=== PATIENT | male | born 1985 | race Caucasian/White ===

== ENCOUNTER 2018-03-09 08:19 | Observation (INO) ==
[2018-03-09] MEDS ORDERED: Morphine Sulfate Inj 8 MG/ML Vial IV.PUSH ONE (09:20)
[2018-03-09] MEDS ORDERED: Ketorolac Inj 30 MG/ML (IVP) Vial IV.PUSH ONE (09:23)
--- NOTE | 2018-03-09 09:43 | ED ---
HPI General Chief complaint: Extremity Injury, Upper Stated complaint: L Shoulder Pain x Last night Time Seen by Provider: 03/09/18 09:09 Source: patient Mode of arrival: ambulatory Limitations: no limitations History of Present Illness HPI narrative: 32-year-old male the presents to the ED for evaluation of left- sided clavicle/shoulder pain. Per patient he developed this pain since last night. He denies any injury. He does tell me that he believes that he may have an infection. Per patient she does use Dilaudid. He cannot really tell me how long his last time he used. He does state that his pain is 10 out of 10. Does feel short of breath with the pain. Denies any fevers chills or sweats. No history of this in the past. No urinary or bowel movement issues. Abdominal pain. It is hard to get a history from him as he does appear to be in a lot of discomfort. She denies any history of heart disease. Patient points to the area of the clavicle on the shoulder as the area of most pain but does point to his left pectoral muscle is area of pain. Related Data Home Medications Medication Instructions Recorded Confirmed No Known Home Medications 03/09/18 03/09/18 Allergies Allergy/AdvReac Type Severity Reaction Status Date / Time No Known Allergies Allergy none Uncoded 03/09/18 08:21 Review of Systems ROS Unobtainable All other systems reviewed negative except as stated in HPI [facility] Medical History Medical History Patient denies medical problems (Acute) Surgical History Surgical History No history of previous surgery (Acute) Social History Social History Substance History: No History of Abuse Smoking Status: Current every day smoker Tobacco Type: Cigarettes How Often Do You Have a Drink Containing Alcohol: 4 or more times a week Recent Travel [facility] within the Last 8 Weeks: No Recent Out of Country Travel within the Last 8 Weeks: No Immunization History Tetanus Immunization: Unsure Hx Influenza Vaccine This Season: No Exam Narrative Exam Narrative: GENERAL: Well-appearing but in some distress SKIN: Focused skin assessment warm/dry. HEAD: Atraumatic. Normocephalic. EYES: Pupils equal and round. No scleral icterus. No injection or drainage. ENT: No nasal bleeding or discharge. Mucous membranes pink and moist. Tongue is midline. No uvula deviation. NECK: Trachea midline. No JVD. CARDIOVASCULAR: Regular rate and rhythm. No murmur appreciated. RESPIRATORY: No accessory muscle use. Clear to auscultation. Breath sounds equal bilaterally. GASTROINTESTINAL: Abdomen soft, non-tender, nondistended. Hepatic and splenic margins not palpable. MUSCULOSKELETAL: No obvious deformities. No clubbing. No cyanosis. No edema. Full range of motion of the upper and lower extremities bilaterally. Patient has pain with any movement of the left shoulder and keeps his arm close to his chest. Patient points to the clavicles are most pain however. Very tender to touch in this area. No cervical, thoracic, lumbar spine tenderness to palpation. No obvious deformities noted. 2+ pulses bilaterally. Sensation intact bilaterally. NEUROLOGICAL: Awake and alert. No obvious cranial nerve deficits. Motor grossly within normal limits. Normal speech. PSYCHIATRIC: Appropriate mood and affect; insight and judgment normal. Course Initial Documented Vital Signs Temperature 97.5 F L 03/09/18 08:22 Pulse Rate 75 03/09/18 08:22 Respiratory Rate 16 03/09/18 08:22 Blood Pressure 118/79 03/09/18 08:22 Pulse Oximetry 99 03/09/18 08:22 Last Documented Vital Signs Temperature 97.5 F L 03/09/18 08:22 Pulse Rate 77 03/09/18 10:00 Respiratory Rate 16 03/09/18 10:00 Blood Pressure 156/88 H 03/09/18 10:00 Pulse Oximetry 100 03/09/18 10:00 Medical Decision Making [facility] Narrative Medical decision making narrative: 32-year-old male that presents to the ED for evaluation of left-sided shoulder pain. Patient was properly examined and was found to have signs and symptoms concerning for possible infection secondary to IV drug abuse. Labs and imaging were ordered. Patient was given IV pain medications and antiemetics. Patient is hard to assess and cannot really assess any murmur or not. She does not appear to have pain and she is chance that he points more to his clavicle. Case was discussed with my attending who agrees with plan. CT scan will be ordered. Labs and imaging showed elevated CRp otherwise unremarcable. patient still in some pain. Pain meds given with some relief but still in a lot of discomfort. Concern for endocarditis due to IVDA. Recommendation by my attending Dr Toledo is for admission and antibitioics. Case discussed with Dr Torres who agrees with admission. My attending discussed case with patient who is in agreement with plan. Differential Diagnosis Differential Diagnosis: Cellulitis versus sepsis versus endocarditis versus septic emboli versus acute on chronic pain versus muscle pain versus fracture versus osteomyelitis Medical Records Medical records reviewed: Yes I reviewed the patient's medical records. Lab Data Lab results reviewed: Yes I reviewed the patient's lab results. Lab results narrative: troponin and CKMB negative CRP of 6 Result diagrams: 03/09/18 09:35 03/09/18 09:35 Lab Results 03/09/18 03/09/18 03/09/18 Range/Units 09:35 09:35 09:35 CBC w Diff Auto diff final WBC 9.4 (4.0-11.0) th/mm3 RBC 5.02 (4.50-5.90) mil/mm3 Hgb 15.1 (13.0-17.0) gm/dL Hct 44.2 (39.0-51.0) % MCV 88.1 (80.0-100.0) fL MCH 30.1 (27.0-34.0) pg MCHC 34.2 (32.0-36.0) % RDW 15.5 (11.6-17.2) % Plt Count 256 (150-450) th/mm3 MPV 8.0 (7.0-11.0) fL Neut % (Auto) 73.0 H (16.0-70.0) % Lymph % (Auto) 12.9 (9.0-44.0) % [place] % (Auto) 9.5 H (0.0-8.0) % Eos % (Auto) 1.1 (0.0-4.0) % Baso % (Auto) 3.5 H (0.0-2.0) % Neut # (Auto) 6.9 (1.8-7.7) th/mm3 Lymph # (Auto) 1.2 (1.0-4.8) th/mm3 [place] # (Auto) 0.9 (0.0-0.9) th/mm3 Eos # (Auto) 0.1 (0.0-0.4) th/mm3 Baso # (Auto) 0.3 H (0.0-0.2) th/mm3 WBC Differential . Differential Comment . Sodium 138 (136-145) meq/L Potassium 4.1 (3.5-5.1) meq/L Chloride 105 (98-107) meq/L Carbon Dioxide 25.5 (21.0-32.0) meq/L Anion Gap 8 (5-15) meq/L BUN 14 (7-18) mg/dL Creatinine 0.99 (0.60-1.30) mg/dL Estimated GFR 88 L (>89) mL/min Random Glucose 103 (74-106) mg/dL Lactic Acid (0.4-2.0) mmol/L Calcium 9.0 (8.5-10.1) mg/dL Magnesium 2.1 (1.5-2.5) mg/dL Total Bilirubin 1.3 H (0.2-1.0) mg/dL AST 26 (15-37) U/L ALT 34 (12-78) U/L Alkaline Phosphatase 105 (45-117) U/L Total Creatine Kinase 163 (39-308) U/L CK-MB (CK-2) 1.0 (0.5-3.6) ng/mL Troponin I Less than 0.02 L (0.02-0.05) ng/mL C-Reactive Protein 6.22 H (0.00-0.30) mg/dL Total Protein 8.3 H (6.4-8.2) g/dL Albumin 4.2 (3.4-5.0) g/dL 03/09/18 Range/Units 09:35 CBC w Diff WBC (4.0-11.0) th/mm3 RBC (4.50-5.90) mil/mm3 Hgb (13.0-17.0) gm/dL Hct (39.0-51.0) % MCV (80.0-100.0) fL MCH (27.0-34.0) pg MCHC (32.0-36.0) % RDW (11.6-17.2) % Plt Count (150-450) th/mm3 MPV (7.0-11.0) fL Neut % (Auto) (16.0-70.0) % Lymph % (Auto) (9.0-44.0) % [place] % (Auto) (0.0-8.0) % Eos % (Auto) (0.0-4.0) % Baso % (Auto) (0.0-2.0) % Neut # (Auto) (1.8-7.7) th/mm3 Lymph # (Auto) (1.0-4.8) th/mm3 [place] # (Auto) (0.0-0.9) th/mm3 Eos # (Auto) (0.0-0.4) th/mm3 Baso # (Auto) (0.0-0.2) th/mm3 WBC Differential Differential Comment Sodium (136-145) meq/L Potassium (3.5-5.1) meq/L Chloride (98-107) meq/L Carbon Dioxide (21.0-32.0) meq/L Anion Gap (5-15) meq/L BUN (7-18) mg/dL Creatinine (0.60-1.30) mg/dL Estimated GFR (>89) mL/min Random Glucose (74-106) mg/dL Lactic Acid 1.7 (0.4-2.0) mmol/L Calcium (8.5-10.1) mg/dL Magnesium (1.5-2.5) mg/dL Total Bilirubin (0.2-1.0) mg/dL AST (15-37) U/L ALT (12-78) U/L Alkaline Phosphatase (45-117) U/L Total Creatine Kinase (39-308) U/L CK-MB (CK-2) (0.5-3.6) ng/mL Troponin I (0.02-0.05) ng/mL C-Reactive Protein (0.00-0.30) mg/dL Total Protein (6.4-8.2) g/dL Albumin (3.4-5.0) g/dL Imaging Data Attestation: I personally reviewed and interpreted this imaging study as follows : Radiologist's impression: Chest CT 03/09/18 09:20 CONCLUSION: 1. Unremarkable exam. 2. The left clavicle is unremarkable in appearance. Chest X-Ray 03/09/18 09:21 CONCLUSION: No acute cardiopulmonary disease. ECG Data EKG Prior to Arrival: No Attestation: I personally reviewed and interpreted this ECG as follows: Interpretation: EKG shows sinus rhythm with no sign of acute ischemia or arrhythmia read by me and attending. Discharge Plan Discharge Disposition Patient Disposition: 30 Still Patient Discharge Details Diagnosis: Chest pain, Endocarditis, Polysubstance abuse Physicians Team ED Provider: Khang Gutiérrez ED Midlevel Provider: Tirso Rogers Primary Care Provider: Primary Care Rosalba Mariee Attending Provider: Mal Torres Discharge Interventions Interventions: Vital Signs Last Done: 03/09/18 10:00 Status ED Status: Admitted Patient
--- NOTE | 2018-03-09 09:46 | XR ---
EXAM DATE: 03/09/2018 9:43 AM EDT AGE/SEX: 32 years / Male INDICATIONS: Left shoulder area pain, no known injury CLINICAL DATA: This is the patient's initial encounter. Patient reports that signs and symptoms have been present for 1 day and indicates a pain score of 10/10. MEDICAL/SURGICAL HISTORY: . Gout None. COMPARISON: No prior exams available for comparison. FINDINGS: A single AP view of the chest demonstrates the lungs to be symmetrically aerated without evidence of mass, infiltrate or effusion. The cardiomediastinal contours are unremarkable. Osseous structures a re intact. There are overlying electrocardiogram leads. Left shoulder appears unremarkable. CONCLUSION: No acute cardiopulmonary disease. Electronically signed by: Marco Alvarado MD 03/09/2018 9:45 AM EDT
[2018-03-09 09:54] LABS: Baso # (Auto) 0.3 th/mm3 (0.0-0.2); Baso % (Auto) 3.5 % (0.0-2.0); Eos # (Auto) 0.1 th/mm3 (0.0-0.4); Eos % (Auto) 1.1 % (0.0-4.0); Hematocrit 44.2 % (39.0-51.0); Hemoglobin 15.1 gm/dL (13.0-17.0); Lymph # (Auto) 1.2 th/mm3 (1.0-4.8); Lymph % (Auto) 12.9 % (9.0-44.0); Mean Corpuscular HGB Conc 34.2 % (32.0-36.0); Mean Corpuscular Hemoglobin 30.1 pg (27.0-34.0); Mean Corpuscular Volume 88.1 fL (80.0-100.0); Mono # (Auto) 0.9 th/mm3 (0.0-0.9); Mono % (Auto) 9.5 % (0.0-8.0); Neut # (Auto) 6.9 th/mm3 (1.8-7.7); Platelet Count 256 th/mm3 (150-450); Red Blood Count 5.02 mil/mm3 (4.50-5.90); Red Cell Distribution Width 15.5 % (11.6-17.2); White Blood Count 9.4 th/mm3 (4.0-11.0)
[2018-03-09 10:01] VITALS: O2SAT 100
[2018-03-09 10:07] LABS: Magnesium 2.1 mg/dL (1.5-2.5)
[2018-03-09] MEDS ORDERED: HYDROmorphone PF Inj 1 MG/ML Ampul IV.PUSH ONE (10:08)
[2018-03-09] MEDS ORDERED: Sod Chloride 0.9% Inj 1,000 ML IV.SIG ONE (10:09)
[2018-03-09 10:14] LABS: Creatine Kinase 163 U/L (39-308)
[2018-03-09] MEDS ORDERED: HYDROmorphone PF Inj 2 MG/ML Vial IV.PUSH ONE ×2 (10:15→14:15)
[2018-03-09 10:19] LABS: C-Reactive Protein 6.22 mg/dL (0.00-0.30)
[2018-03-09] MEDS ORDERED: Piperacil/Tazo 4.5 GM Premix 4.5 GM/100 ML BAG IV.SIG ONE (10:42)
[2018-03-09] MEDS ORDERED: Vancomycin Inj 1 GM/200 ML PIGGYBACK IV.SIG SCH (11:00)
[2018-03-09 11:02] LABS: Chloride 105 meq/L (98-107); Potassium 4.1 meq/L (3.5-5.1); Sodium 138 meq/L (136-145)
[2018-03-09 11:06] LABS: Albumin 4.2 g/dL (3.4-5.0); Anion Gap 8 meq/L (5-15); Blood Urea Nitrogen 14 mg/dL (7-18); Carbon Dioxide 25.5 meq/L (21.0-32.0); Glucose,Random 103 mg/dL (74-106)
[2018-03-09 11:09] LABS: Alanine Aminotransferase 34 U/L (12-78); Aspartate Aminotransferase 26 U/L (15-37); Glomerular Filtration Rate 88 mL/min (>89)
[2018-03-09 11:10] LABS: Total Protein 8.3 g/dL (6.4-8.2)
[2018-03-09 11:12] LABS: Alkaline Phosphatase 105 U/L (45-117)
[2018-03-09] MEDS ORDERED: Vancomycin Inj 1,000 MG in Sodium Chlor 0.9% Inj 250 ML IV.SIG ONE (11:12)
--- NOTE | 2018-03-09 11:56 | CT ---
EXAM DATE: 03/09/2018 11:43 AM EDT AGE/SEX: 32 years / Male INDICATIONS: Left anterior chest pain around clavicle area. No known injury. CLINICAL DATA: This is the patient's initial encounter. Patient reports that signs and symptoms have been present for 2 days and indicates a pain score of 8/10. MEDICAL/SURGICAL HISTORY: None. None. RADIATION DOSE: 20.01 CTDI (mGy) COMPARISON: No prior exams available for comparison. TECHNIQUE: Multiple contiguous axial images were obtained through the chest during bolus infusion of 65 ml Omnipaque 350 (iohexol) nonionic water-soluble contrast as a single exam dose. Images were obtained in suspended respiration using multiple row detector helical technique. Using automated exp osure control and adjustment of the mA and/or kV according to patient size, radiation dose was kept a s low as reasonably achievable to obtain optimal diagnostic quality images. DICOM format image data is available electronically for review and comparison. FINDINGS: Lungs: The lungs are symmetrically aerated. No infiltrates or nodular densities are seen. Mediastinum: There is good visualization of the great vessels of the middle mediastinum. No evidenc e of mediastinal or hilar adenopathy/mass. Pleurae: No evidence of focal thickening or pleural effusion. Axillae: Unremarkable. Bony Structures: Unremarkable. Miscellaneous: The examination was extended to include the upper abdomen, and both adrenal glands ar e normal in size and configuration. CONCLUSION: 1. Unremarkable exam. 2. The left clavicle is unremarkable in appearance. Electronically signed by: Marco Alvarado MD 03/09/2018 11:54 AM EDT
[2018-03-09] MEDS: Ketorolac Inj 30 MG/ML (IVP) Vial IV.PUSH PRN ×2 (14:27→20:04)
[2018-03-09] MEDS ORDERED: Acetaminophen 325 MG Tablet PO PRN (14:29)
[2018-03-09] MEDS ORDERED: Bisacodyl 10 MG Supp RECTAL PRN (14:29)
[2018-03-09] MEDS ORDERED: Temazepam 15 MG Capsule PO PRN (14:29)
[2018-03-09] MEDS ORDERED: MethylPREDNISolone Sod Succinate Inj 125 MG/2 ML Vial IV.PUSH ONE (14:30)
[2018-03-09] MEDS ORDERED: Sod Chloride 0.9% Inj 1,000 ML IV.CONT SCH (14:30)
--- NOTE | 2018-03-09 14:34 | P.HP ---
History of Present Illness Primary Care Physician: No Primary Care Physician Chief Complaint: Clavicle shoulder pain History of Present Illness: 32-year-old male with known history of gout, IV drug use with Dilaudid who presented to the hospital because of left clavicle and shoulder pain. Patient states that he was in normal state of health until yesterday when he started developing some achiness in his left clavicle shoulder area. It progressively got worse where he could not sleep throughout the night. He states that he took his temperature last night and was 103. The patient came to the emergency department today and had workup performed which he was afebrile , no leukocytosis, CT scan of the clavicle and shoulder do not indicate any acute abnormality. Laboratory studies were performed which did have an elevated C-reactive protein. Because of the patient's history of IV drug use is recommended by the ER physician the need to evaluate for possible endocarditis. Patient does have history of gout in which he has had multiple flares in multiple joints to include fingers, knees, ankles, toes. He indicates that the pain is much worse than his normal gout flareups. Patient is laying in bed use and multiple curse words, he was resting comfortably until I walked into the room then it would appears he was start to cry and curse about his pain. He is demanding pain medication. Patient states that he actively uses IV drugs to include Dilaudid. He states last time he used was a few days ago. He states that he just recently started using. He indicates his only used IV drugs approximately 3-4 times. - Diagnosis (1) Pain of left clavicle Inpatient Certification: I certify that the inpatient services were ordered in accordance with Medicare regulations governing the order. This includes certification that hospital inpatient services are reasonable and necessary and in the case of services not specified as inpatient-only under 42 CFR 419.22(n), that they are appropriately provided as inpatient services in accordance to with the 2-midnight benchmark under 43 CFR 412.3(e) Review of Systems All other systems reviewed negative except as stated in HPI Constitutional: Reports fever(s) Musculoskeletal: Reports joint pain PMFSH - History History Provided By: Patient - Medical History Medical History: Medical History (Last Updated 03/09/18 @ 14:27 by DARIO Lopez) Gouty arthritis IV drug user - Surgical History Surgical History: Surgical History (Last Reviewed 03/09/18 @ 09:41 by DARIO Conrad) No history of previous surgery (Acute) - Family History Family History: Family History (Last Updated 03/09/18 @ 14:27 by DARIO Lopez) Other No pertinent family history - Tobacco History Tobacco Use In Past 30 Days: Yes Smoking Status: Current every day smoker Tobacco Type: Cigarettes Packs Per Day: 1 Years Smoked: 14 - Alcohol History How Often Do You Have a Drink Containing Alcohol: 4 or more times a week - Substance Use History Substance History: No History of Abuse - Travel History Recent Travel in the [facility] Within the Last 8 Weeks: No Recent Travel Out of the Country Within the Last 8 Weeks: No - Immunization History Tetanus Immunization: Unsure Hx Influenza Vaccine This Season: No Medications and Allergies Active Medications: Active Medications Ketorolac Tromethamine (Toradol Inj) 30 mg IV.PUSH Q6H PRN PRN Reason: PAIN SCALE 6 TO 10 Stop: 03/14/18 13:55 Methylprednisolone Sodium Succinate (Solumedrol Inj) 125 mg IV.PUSH ONCE ONE Stop: 03/09/18 14:31 Morphine Sulfate (Oramorph Sr) 100 mg PO Q8HR EDE Allergies Allergy/AdvReac Type Severity Reaction Status Date / Time No Known Allergies Allergy none Uncoded 03/09/18 08:21 Home Medications Medication Instructions Recorded Confirmed Type No Known Home Medications 03/09/18 03/09/18 History Exam Vital signs: Vital Signs 03/09/18 08:22 03/09/18 09:21 03/09/18 10:00 Temperature 97.5 F L Pulse Rate 75 77 Respiratory Rate 16 16 Blood Pressure 118/79 156/88 H Pulse Oximetry 99 99 100 03/09/18 13:47 Temperature Pulse Rate 82 Respiratory Rate Blood Pressure Pulse Oximetry Intake & Output 03/08/18 03/09/18 03/09/18 18:59 06:59 18:59 Intake Total 350 / 350 Balance 350 / 350 Weight 85.5 kg Intake: IV 350 / 350 Zosyn 4.5 GM Premix 4.5 gm In 100 / 100 100 ml @ 200 mls/hr IV.SIG ONCE ONE Rx#:[id number] Vancomycin Inj 1,000 MG In NS 250 / 250 Inj 250 ML @ 250 mls/hr IV.SIG ONCE ONE Rx#:[id number] Narrative: GENERAL: Well-developed, well-nourished, in no acute distress. alert and orientated HEENT: Head is normocephalic without any lesions or masses noted. Facial features are symmetric. Eyes: Pupils equal round reactive to light. Extraocular muscles are intact. Conjunctivae were clear. Oropharyngeal: Pharynx without any erythema edema. Tongue is midline without deviation. Buccal mucosa is moist without any masses or lesions NECK: Supple without any masses. Trachea midline no deviation. No JVD, no bruits are appreciated CARDIAC: Regular rhythm, regular rate. S1/S2 are heard. No murmurs gallops or rubs. LUNGS: Clear to auscultation bilaterally. No wheeze, rhonchi or rales. No use of accessory muscles on inspiration or expiration. ABDOMEN: Soft, nontender. Nondistended. Bowel sounds heard in all 4 quadrants. No organomegaly or masses. Negative rebound, negative guarding EXTREMITIES: No edema, pulses are equal bilaterally. No cyanosis or clubbing NEUROLOGY: Mood and affect appear appropriate. Cranial nerves II through XII grossly intact. Muscle strength 5/5 in upper and lower extremities bilaterally. Deep tendon reflexes are 2+ in upper and lower extremities bilaterally. Results - Labs CBC & Chem 7: 03/09/18 09:35 03/09/18 09:35 Labs: Laboratory Results - last 24 hr 03/09/18 03/09/18 03/09/18 09:35 09:35 09:35 CBC w Diff Auto diff final WBC 9.4 RBC 5.02 Hgb 15.1 Hct 44.2 MCV 88.1 MCH 30.1 MCHC 34.2 RDW 15.5 Plt Count 256 MPV 8.0 Neut % (Auto) 73.0 H Lymph % (Auto) 12.9 [place] % (Auto) 9.5 H Eos % (Auto) 1.1 Baso % (Auto) 3.5 H Neut # (Auto) 6.9 Lymph # (Auto) 1.2 [place] # (Auto) 0.9 Eos # (Auto) 0.1 Baso # (Auto) 0.3 H WBC Differential . Differential Comment . Sodium 138 Potassium 4.1 Chloride 105 Carbon Dioxide 25.5 Anion Gap 8 BUN 14 Creatinine 0.99 Estimated GFR 88 L Random Glucose 103 Lactic Acid Calcium 9.0 Magnesium 2.1 Total Bilirubin 1.3 H AST 26 ALT 34 Alkaline Phosphatase 105 Total Creatine Kinase 163 CK-MB (CK-2) 1.0 Troponin I Less than 0.02 L C-Reactive Protein 6.22 H Total Protein 8.3 H Albumin 4.2 03/09/18 09:35 CBC w Diff WBC RBC Hgb Hct MCV MCH MCHC RDW Plt Count MPV Neut % (Auto) Lymph % (Auto) [place] % (Auto) Eos % (Auto) Baso % (Auto) Neut # (Auto) Lymph # (Auto) [place] # (Auto) Eos # (Auto) Baso # (Auto) WBC Differential Differential Comment Sodium Potassium Chloride Carbon Dioxide Anion Gap BUN Creatinine Estimated GFR Random Glucose Lactic Acid 1.7 Calcium Magnesium Total Bilirubin AST ALT Alkaline Phosphatase Total Creatine Kinase CK-MB (CK-2) Troponin I C-Reactive Protein Total Protein Albumin - Imaging Impressions Chest CT 03/09/18 09:20 CONCLUSION: 1. Unremarkable exam. 2. The left clavicle is unremarkable in appearance. Chest X-Ray 03/09/18 09:21 CONCLUSION: No acute cardiopulmonary disease. Caprini VTE Risk Assessment Caprini VTE Risk Assessment: No/Low Risk (score <= 1) Caprini Risk Assessment Model: Point Value = 1 Point Value = 2 Point Value = 3 Point Value = 5 Age 41-60 Minor surgery BMI > 25 kg/m2 Swollen legs Varicose veins or History of unexplained or recurrent spontaneous Oral contraceptives or hormone replacement Sepsis (< 1 month) Serious lung disease, including pneumonia (< 1 month) Abnormal pulmonary function Acute myocardial infarction Congestive heart failure (< 1 month) History of inflammatory bowel disease Medical patient at bed rest Age 61-74 Arthroscopic surgery Major open surgery (> 45 min) Laparoscopic surgery (> 45 min) Malignancy Confined to bed (> 72 hours) Immobilizing plaster cast Central venous access Age >= 75 History of VTE Family history of VTE Factor V Leiden Prothrombin [id number] Lupus anticoagulant Anticardiolipin antibodies Elevated serum homocysteine Heparin-induced thrombocytopenia Other congenital or acquired thrombophilia Stroke (< 1 month) Elective arthroplasty Hip, pelvis, or leg fracture Acute spinal cord injury (< 1 month) Prophylaxis Regimen: Total Risk Factor Score Risk Level Prophylaxis Regimen 0-1 Low Early ambulation 2 Moderate Order ONE of the following: *Sequential Compression Device (SCD) *Heparin 5000 units SQ BID 3-4 Higher Order ONE of the following medications: *Heparin 5000 units SQ TID *Enoxaparin/Lovenox 40 mg SQ daily (WT < 150 kg, CrCl > 30 mL/min) *Enoxaparin/Lovenox 30 mg SQ daily (WT < 150 kg, CrCl > 10-29 mL/min) *Enoxaparin/Lovenox 30 mg SQ BID (WT < 150 kg, CrCl > 30 mL/min) AND/OR *Sequential Compression Device (SCD) 5 or more Highest Order ONE of the following medications: *Heparin 5000 units SQ TID (Preferred with Epidurals) *Enoxaparin/Lovenox 40 mg SQ daily (WT < 150 kg, CrCl > 30 mL/min) *Enoxaparin/Lovenox 30 mg SQ daily (WT < 150 kg, CrCl > 10-29 mL/min) *Enoxaparin/Lovenox 30 mg SQ BID (WT < 150 kg, CrCl > 30 mL/min) AND *Sequential Compression Device (SCD) Assessment and Plan - Assessment (1) Pain of left clavicle Code(s): M89.8X1 - Other specified disorders of bone, shoulder Status: Acute - Plan Left clavicle/shoulder pain, intractable -Patient presented with subjective fever, intractable left clavicle/shoulder pain. Patient had extensive workup done emergency department, CT scan of the area did not indicate any acute abnormality. No leukocytosis, patient is afebrile. -Patient does have increased risk for possible underlying septic emboli due to IV drug use, elevated C-reactive protein, however patient also has history of gouty arthritis, will need further evaluation for that at this time. -CT scan of the chest did not indicate any acute abnormality -Chest x-ray was unremarkable -EKG shows sinus rhythm without any acute abnormality -Blood cultures have been ascertained, await results, if patient develops fever or positive blood cultures will need to obtain echocardiogram to rule out endocarditis -Obtain sed rate, uric acid -Patient given Solu-Medrol 125 mg IV 1 -Oramorph and Toradol for pain control IV drug use -Patient counseled on cessation -Case management consulted to supply patient with information for [facility] DVT prevention -Sequential compression devices
[2018-03-09] MEDS ORDERED: Morphine Sulfate 100 MG SR Tablet PO SCH (15:00)
--- NOTE | 2018-03-09 15:55 | ECG ---
Date Performed: 03/09/2018 Time Performed: 09:39:46 PTAGE: 32 years EKG: Sinus rhythm WITH SINUS ARRHYTHMIA NORMAL ECG NO PREVIOUS TRACING DOCTOR: Norm Bustamante Interpretating Date/Time 03/09/2018 15:53:12
[2018-03-09 20:13] VITALS: BP 141/80; PULSE 80; RESP 18; TEMP 98.3
[2018-03-09] MEDS ORDERED: Senna/Docusate Sodium 8.6/50 MG Tablet PO SCH (21:00)
== END 2018-03-09 20:44 | disposition left against medical advice (07) ==
LOC: PH3 08:19 → PHEFT 08:19 → INTOOBSV 12:23 → PHEDA 12:23 → PHICU 13:25 → PH3 17:09
PROVIDERS: ADMIT Family Medicine; ATTEND Family Medicine